=== PATIENT | female | born 1980 | race African-American/Black ===

== ENCOUNTER 2024-10-23 09:04 | Emergency (ER) | payer OTHER ==
[~2024-10-23] VITALS: Ht 157.5 cm; Wt 109.1 kg
[~2024-10-23 09:04] MED LIST: BUPR-50 PO; LISI-893 PO; LORA10TA7 PO; METO25XL PO; TRAZ150T80 PO
[2024-10-23 09:11] VITALS: BP 154/109; PULSE 69; RESP 20; TEMP 97.2; O2SAT 100
[2024-10-23] MEDS ORDERED: CHOL400T56 PO (09:13)
[2024-10-23] MEDS ORDERED: NAPR-1196 PO (09:13)
[2024-10-23] MEDS ORDERED: METF-81 PO (09:13)
[2024-10-23] MEDS: ACETAMINOPHEN 500 MG TABLET PO ONE (09:34)
[2024-10-23] MEDS: LIDOCAINE 5% TRANSDERMAL PATCH TD ONE (09:35)
== END 2024-10-23 10:05 | disposition home or self-care (01) ==
LOC: EMS 09:19
DX: S46.012A Strain of muscle(s) and tendon(s) of the rotator cuff of left shoulder, initial encounter (principal); I11.0 Hypertensive heart disease with heart failure; I50.9 Heart failure, unspecified; Z98.890 Other specified postprocedural states; Z87.891 Personal history of nicotine dependence; Z79.899 Other long term (current) drug therapy; W07.XXXA Fall from chair, initial encounter; Y93.89 Activity, other specified; Y92.89 Other specified places as the place of occurrence of the external cause; Y99.8 Other external cause status
CPT/HCPCS: 99283

== ENCOUNTER 2025-03-09 20:51 | Emergency (ER) | payer OTHER ==
[~2025-03-09] VITALS: Ht 157.5 cm; Wt 109.1 kg
[~2025-03-09 20:51] MED LIST changes: -BUPR-50 PO; +CHOL400T56 PO; -LISI-893 PO; -LORA10TA7 PO; +METF-81 PO; -METO25XL PO; +NAPR-1196 PO; -TRAZ150T80 PO
[2025-03-09 20:59] VITALS: TEMP 99
[2025-03-09 21:39] LABS: PLATELET COUNT (AUTO) 300 K/uL (150-450); RED BLOOD CELL COUNT(AUTO) 4.02 MIL/uL (4.00-5.20); RED CELL DISTRIBUTION WIDTH 14.1 % (11.5-14.5); WHITE BLOOD COUNT (AUTO) 12.6 K/uL (4.5-11.0)
[2025-03-09 21:48] LABS: CALCIUM, TOTAL 9.4 mg/dL (8.8-10.5); CREATININE 0.92 mg/dL (0.60-1.30); GLOMERULAR FILTR. RATE CALC > 60 mL/min (>60); GLUCOSE,RANDOM 122 mg/dL (70-110); SODIUM SERUM 138 mmol/L (136-145); UREA NITROGEN, BLOOD 12 mg/dL (7-18)
[2025-03-09 22:16] LABS: APPEARANCE,URINE CLEAR (CLEAR); GLUCOSE, URINE (UA) NEGATIVE (NEGATIVE); LEUKOCYTE ESTERASE ,URINE NEGATIVE (NEGATIVE); NITRATE,URINE NEGATIVE (NEGATIVE); OCCULT BLOOD,URINE TRACE (NEGATIVE); SPECIFIC GRAVITIY, URINE 1.013 (1.003-1.030)
[2025-03-09 22:29] LABS: SQUAMOUS EPITHELIAL CELL,UR Few /LPF (None Seen); YEAST,URINE None Seen /HPF (None Seen)
[2025-03-09 22:36] LABS: ASPARTATE AMINOTRANSFERASE 14.0 U/L (15-37); TOTAL PROTEIN, SERUM 8.1 g/dL (6.4-8.2)
[2025-03-09] MEDS: ACETAMINOPHEN 500 MG TABLET PO ONE (22:43)
[2025-03-09] MEDS: IBUPROFEN 400 MG TABLET PO ONE (22:43)
[2025-03-09 23:15] VITALS: BP 154/90; PULSE 54; RESP 16; O2SAT 98
[2025-03-10] MEDS ORDERED: LIDO-57 TP
== END 2025-03-10 00:07 | disposition home or self-care (01) ==
LOC: EMS 20:51
DX: R10.12 Left upper quadrant pain (principal); I11.0 Hypertensive heart disease with heart failure; F32.A Depression, unspecified; Z87.891 Personal history of nicotine dependence; Z79.899 Other long term (current) drug therapy
CPT/HCPCS: 74176; 80048; 80076; 81001; 83690; 84703; 85025; 99284